=== PATIENT | female | born 1935 | race Caucasian/White ===

== ENCOUNTER 2017-03-06 15:13 | Inpatient (IN) | payer MEDICARE, MEDICAID ==
[~2017-03-06] VITALS: Ht 165.1 cm; Wt 57.6 kg
[~2017-03-06 15:13] MED LIST: IOHEXOL-300 100 ML BOTTLE ONE; SODIUM CHLORIDE 0.9% 10ML VIAL ONE
[2017-03-06 15:58] VITALS: BP 152/69
[2017-03-06] MEDS ORDERED: ASPI-1159 PO (17:09)
[2017-03-06] MEDS ORDERED: AMLO10TA80 PO (17:09)
[2017-03-06] MEDS ORDERED: OLME1TAB30 PO (17:09)
[2017-03-06] MEDS ORDERED: ONDANSETRON HCL 4MG/2ML VIAL IV PRN (17:30)
[2017-03-06] MEDS ORDERED: KETOROLAC 10MG TABLET PO PRN (17:30)
[2017-03-06] MEDS: DEXT 5%/0.45% NACL KCL 20MEQ/L 1,000 ML IV SCH (18:54)
[2017-03-06 18:57] LABS: BASOPHILS % 0.6 % (0.0-2.0); EOSINOPHILS % 1.3 % (0.0-5.0); HEMOGLOBIN. 11.4 g/dL (12.0-16.0); LYMPHOCYTES % 34.4 % (20.0-50.0); MEAN CORPUSCULAR HEMOGLOBIN 27.1 pg (28.0-32.0); MEAN CORPUSCULAR VOLUME 81.1 fL (81.0-99.0); MEAN PLATELET VOLUME 7.8 fl (7.4-10.4); MONOCYTES % 7.2 % (2.0-8.0); NEUTROPHILS % 56.5 % (40.0-76.0); PLATELET 345 x1000/uL (130-400); RED BLOOD CELL COUNT 4.19 mill/uL (4.2-5.4); RED CELL DISTRIBUTION WIDTH 13.2 % (11.6-14.6)
[2017-03-06 19:09] LABS: CHLORIDE 104 mEq/L (98-107)
[2017-03-06 19:14] LABS: CARBON DIOXIDE 27 mEq/L (21-32); PHOSPHORUS 4.2 mg/dL (2.5-4.9)
[2017-03-06 20:00] VITALS: BP 133/65
[2017-03-06] MEDS ORDERED: DIATR MEGLU/DIATRIZOATE SOLN 30ML PO NR (21:30)
[2017-03-07] VITALS: BP 144/64
[2017-03-07] MEDS: DEXT 5%/0.45% NACL KCL 20MEQ/L 1,000 ML IV SCH ×3 (02:56→18:52)
[2017-03-07 04:00] VITALS: BP 151/70
[2017-03-07 05:57] LABS: BASOPHILS % 0.4 % (0.0-2.0); EOSINOPHILS % 1.9 % (0.0-5.0); HEMATOCRIT. 31.4 % (36.0-48.0); HEMOGLOBIN. 10.3 g/dL (12.0-16.0); LYMPHOCYTES % 34.6 % (20.0-50.0); MEAN CORPUSCULAR HEMOGLOBIN 26.8 pg (28.0-32.0); MEAN CORPUSCULAR VOLUME 81.9 fL (81.0-99.0); MEAN PLATELET VOLUME 7.5 fl (7.4-10.4); MONOCYTES % 8.2 % (2.0-8.0); NEUTROPHILS % 54.9 % (40.0-76.0); PLATELET 429 x1000/uL (130-400); RED BLOOD CELL COUNT 3.84 mill/uL (4.2-5.4); RED CELL DISTRIBUTION WIDTH 12.9 % (11.6-14.6)
[2017-03-07 07:29] LABS: CHLORIDE 104 mEq/L (98-107)
[2017-03-07 08:00] VITALS: BP 140/65
[2017-03-07 08:02] LABS: CARBON DIOXIDE 24 mEq/L (21-32); HDL CHOLESTEROL 30 mg/dL (40-59); LDL CHOLESTEROL 80 mg/dL (5-100)
[2017-03-07] MEDS: KETOROLAC 15MG/ML VIAL IV PRN ×2 (10:42→16:59)
[2017-03-07 12:00] VITALS: BP 114/56
[2017-03-07 16:00] VITALS: BP 141/62
[2017-03-07 20:00] VITALS: BP 142/62
[2017-03-07 20:27] LABS: CLARITY URINE CLEAR (CLEAR); COLOR URINE YELLOW (YELLOW); GLUCOSE URINE NEGATIVE (NEGATIVE); KETONES URINE NEGATIVE (NEGATIVE); LEUKOCYTE ESTERASE URINE TRACE (NEGATIVE); NITRITE URINE NEGATIVE (NEGATIVE); OCCULT BLOOD URINE NEGATIVE (NEGATIVE); PROTEIN URINE NEGATIVE (NEGATIVE); SPECIFIC GRAVITY URINE 1.006 (1.005-1.030); UROBILINOGEN URINE 0.2 E.U./dL (0.2-1.0)
[2017-03-07 21:47] LABS: BASOPHILS % 0.5 % (0.0-2.0); EOSINOPHILS % 1.5 % (0.0-5.0); HEMATOCRIT. 33.3 % (36.0-48.0); MEAN CORPUSCULAR HEMOGLOBIN 26.8 pg (28.0-32.0); MEAN CORPUSCULAR VOLUME 81.4 fL (81.0-99.0); MEAN PLATELET VOLUME 7.9 fl (7.4-10.4); MONOCYTES % 7.7 % (2.0-8.0); NEUTROPHILS % 49.3 % (40.0-76.0); PLATELET 298 x1000/uL (130-400); RED CELL DISTRIBUTION WIDTH 12.9 % (11.6-14.6)
[2017-03-08] VITALS: BP 147/65
[2017-03-08] MEDS: DEXT 5%/0.45% NACL KCL 20MEQ/L 1,000 ML IV SCH (03:22)
[2017-03-08 04:00] VITALS: BP 145/83
[2017-03-08 07:39] VITALS: BP 152/78
[2017-03-08 09:40] VITALS: BP 152/78
== END 2017-03-08 10:00 | disposition home or self-care (01) | DRG 392 ==
LOC: 8WST 15:13
PROVIDERS: ADMIT Internal Medicine; ATTEND Internal Medicine
DX: R10.9 Unspecified abdominal pain (principal); K57.30 Diverticulosis of large intestine without perforation or abscess without bleeding; I25.10 Atherosclerotic heart disease of native coronary artery without angina pectoris; I10 Essential (primary) hypertension; E78.5 Hyperlipidemia, unspecified; E11.9 Type 2 diabetes mellitus without complications; N83.201 Unspecified ovarian cyst, right side; M51.27 Other intervertebral disc displacement, lumbosacral region; Z79.82 Long term (current) use of aspirin; Z90.49 Acquired absence of other specified parts of digestive tract; Z95.5 Presence of coronary angioplasty implant and graft; Z83.3 Family history of diabetes mellitus; Z80.9 Family history of malignant neoplasm, unspecified
CPT/HCPCS: 36415; 71010; 74000; 74177; 76700; 76856; 80048; 80053; 80061; 80076; 81001; 82248; 82310; 83690; 83735; 84100; 84443; 84550; 85025; 85651; 85730; 87040; 87077; 87086; 87186; 93970; A4216; J1885; Q9963; Q9967